=== PATIENT | male | born 1950 | race Caucasian/White ===

== ENCOUNTER 2017-09-06 07:31 | Inpatient (IN) | END 2017-09-07 14:30 | disposition home or self-care (01) | DRG 470 ==

== ENCOUNTER 2017-09-25 21:06 | Emergency (ER) | END 2017-09-26 01:00 | disposition home or self-care (01) ==

== ENCOUNTER 2018-03-21 09:19 | Inpatient (IN) | payer MEDICARE, BC ==
[2018-03-15 09:59] VITALS: Ht 181.6 cm; Wt 104.9 kg
--- NOTE | 2018-03-20 09:36 | PREOPHP ---
DATE OF ADMISSION: 03/21/2018 He is having an open irrigation and debridement right hip probable infection various surgery to be do ne by Dr. Gunter. HISTORY OF PRESENT ILLNESS: The patient is a 67-year-old male who underwent a right total hip replac ement on 09/06/2017. He developed possible wound infection with a sinus tract. He had I and D done at [facility] in 01/17/2018. He was treated with Bactrim and Keflex and then subsequent to t hat, he had another 3 to 4-week course of Keflex 500 mg t.i.d. At this time, it was opted to do open process to drain in the possible infection. He had a CT scan of the soft tissues of the hip that sh ows a possible communication regarding the skin and the hip prosthesis. MEDICAL PROBLEMS: Include: 1. Hypertension on Exforge 10/ daily. 2. Aspirin 81 mg daily. No cardiac, no SANIPRACTIC PHYSICIAN complaints. 3. BPH, on Flomax 0.4 two at bedtime and Myrbetriq 25 mg at bedtime. 4. Osteoarthritis, status post multiple orthopedic procedures in the past which included right knee contusions ____ laminectomy L4 to L5 on 10/2013, right knee arthroscopy in 1984, right total hip repl acement just recently. He takes only aspirin for p.r.n. pain. 5. Chronic sinusitis and vertigo relatively quiescent. 6. He is nonsmoker. He quit smoking 43 years ago. 7. Elevated blood sugars between 100 and 105. Likely, hemoglobin has been between 5.5 to 5.7. 8. Moderate obesity, mostly related to increased caloric intake ____. 9. Elevated cholesterol and triglycerides. He has refused taking medication. For quite some time, the collection is not really that high. 10. Vitamin D deficiency, in 3000 units daily. ALLERGIES: THE PATIENT IS ALLERGIC TO NO MEDICATIONS. SOCIAL HISTORY: He quit smoking 43 years ago. He does not drink much alcohol. Coffee 1 to 2 cups a day. PRIOR SURGERIES: Tonsillectomy age 3 or 4, laminectomy in 10/2013, right knee surgery in 1984, vasec avel at age 27, septoplasty in 1993. FAMILY HISTORY: Noncontributory. REVIEW OF SYSTEMS: Noncontributory. PHYSICAL EXAMINATION: VITAL SIGNS: Blood pressure was 134/80, pulse 80, respirations 20. GENERAL: Well-developed, well-nourished male in no acute distress. HEENT: Head is normocephalic, atraumatic. Eyes: Conjunctivae are clear. Fundi benign. ENT exam u nremarkable. NECK: Supple. Full range of motion. No thyromegaly or adenopathy. Carotid pulses are 2+ equal and symmetrical. BACK: No spine or CVA tenderness. LUNGS: Clear to percussion and auscultation. COR: Regular rate and rhythm. No gallops. No murmurs. GASTROINTESTINAL: Abdomen soft, nontender, nondistended. No masses, no hepatosplenomegaly. Bowel s ounds are normoactive. RECTAL: Done recently in the office and unremarkable. EXTREMITIES: No clubbing, cyanosis or edema. NEUROLOGICAL: Grossly physiological. LABORATORY DATA: Done. Chemistries were unremarkable. His blood sugar was 102. Pro time and PTT w ere normal. CBC was normal as well. The urine was clear. DIAGNOSTIC DATA: His EKG shows normal sinus rhythm. No ST-T segment changes. Chest x-ray was joseph l. The patient is clear for this surgery to be done by Dr. Gunter. DR. DAVID MARIA DICATING PRE-OP HISTORY AND PHYSICAL FOR DR. SARAI GUNTER. Dictated By: SARAI GUNTER MD CG/ESTEE Conf#: [id number] DID#: [id number] CC: SARAI GUNTER MD;*EndCC*
[2018-03-21] VITALS (33 sets, daily range): BP systolic 114–142; BP diastolic 57–77; PULSE 76–102; RESP 12–23
[~2018-03-21] VITALS: Ht 181.6 cm; Wt 104.9 kg
--- NOTE | 2018-03-21 06:02 | HPN ---
Date/Time of Note Date/Time of Note DATE: 03/21/18 TIME: 06:02 Interval H&P Admission Note Pt. seen H&P reviewed: No system changes SARAI GUNTER MD Mar 21, 2018 06:02
--- NOTE | 2018-03-21 06:05 | OPR ---
Date/Time of Note Date/Time of Note DATE: 03/21/18 TIME: 06:03 Operative Report Procedure Date: Mar 21, 2018 Preoperative Diagnosis Drainage from right hip Postoperative Diagnosis 1. Inflammation and drainage right hip status post total hip replacement Operation/Procedure Performed 1. Open debridement of the right hip with arthrotomy 2. Application of PRP Surgeon see signature line Manager Document Control Billy Sargent DO Second Manager Document Control: JAYE PINTO PA-C Anesthesia Type: general Estimated Blood Loss: 50 - 100 ml's Transfusion none Specimen Multiple cultures Grafts/Implants none Complications none Pt Condition Post Procedure: stable Disposition: PACU Procedure Description OVEN OPERATOR AUTOMATIC SURGEON: Billy Sargent DO was asked to be present at my request as a result of the complexity associated with this procedure including positioning of the extremity, positioning of the instrumentation and protection of the neurovascular structures. In my opinion, the assistance offered by a surgical services tech is insufficient and he should be compensated for his time. PROCEDURE IN DETAIL: Following the administration of general endotracheal anesthesia supplemented with a local anesthetic, the patient was placed in the supine position. The right lower extremity in the area of the prior incision was then sterilely prepped and draped. The right forearm was prepped and 60 cc of blood were drawn using a 60 cc syringe coated with anticoagulant. The blood was harvested from the patient and given to the administrative representative who prepared PRP concentrate.Sterile prep and drape was then undertaken. The prior incision was then made exposing the tensor fascia the fascia was incised the tensor was retracted laterally. At this point, a pocket was noted distally and slightly medially. This area was elevated and necrotic tissue was then debrided from this area. 2 cultures were obtained and sent. They were labeled #1 and #2. The devitalized tissue was then debrided and pulsatile lavage was then used. The pocket went medially but not distally and not proximally into the hip joint. Following the thorough debridement, the previously prepared PRP solution along with 2 g of vancomycin powder was then instilled in the pocket and the area of the debridement. Wound was closed using 0 Cannon filament suture as well as 2-0 monofilament suture followed by a Prenio for the final cover. This was watertight. Estimated blood loss was procedure was 50 cc. SARAI GUNTER MD Mar 21, 2018 06:05
[~2018-03-21 09:19] MED LIST: AMLO1TAB15 PO; BUPIVACAINE 0.5% (SDV) 30 ML, morphine SULFATE (PF) 8 MG, EPINEPHrine 0.3 MG, KETOROLAC... IRR SCH; CEFAZOLIN 2 GM/50 ML (PMX) 50 ML IVPB ONE; CEPH-443 PO; DEXAMETHASONE 1 MG TAB PO ONE; EPHEDrine SULFATE 50 MG/5 ML SYG ONE; GABAPENTIN 300 MG CAP PO ONE; NAPR-688 PO; OXYB5TAB22 PO; SEVOFLURANE 15 MIN ONE; SOD CHLORIDE 0.9% 100 ML, TRANEXAMIC ACID 3,000 MG IRR ONE; TAMS0.4C2 PO; TRANEXAMIC ACID 1,000 MG in DEXTROSE 5% 100 ML IVPB ONE
[2018-03-21] MEDS ORDERED: AMLO-356 PO (10:32)
[2018-03-21] MEDS ORDERED: MIRA50TA PO (10:35)
[2018-03-21] MEDS ORDERED: CEPH500C PO (10:36)
--- NOTE | 2018-03-21 12:38 | PREAC ---
Date/Time of Note Date/Time of Note DATE: 03/21/18 TIME: 12:35 Anesthesia Eval and Record Evaluation Time Pre-Procedure Interview DATE: 03/21/18 TIME: 12:35 Age 67 Sex male NPO: 8 hrs Preoperative diagnosis hip infection Planned procedure right hip open debridement Past Medical History Past Medical History: Includes Cardio: HTN Surgery & Anesthesia Issues No known issue Meds Anticoagulation: No Beta Geri within 24 hr: No Reason Beta Geri not given: Pt. not on B-Geri Reported Medications Cephalexin* (Cephalexin*) 500 Mg Capsule, 500 MG PO BID, #28 CAP STARTED 03-08-18 FOR 14 DAYS 03/21/18 Mirabegron (Myrbetriq) 50 Mg Tab.er.24h, 50 MG PO DAILY, TAB 03/21/18 Amlodipine/Valsartan (Amlodipine-Valsartan 10-320 mg) 1 Each Tablet, 1 TAB PO QPM, #30 TAB 03/21/18 Tamsulosin Hcl* (Tamsulosin Hcl*) 0.4 Mg Cap.er.24h, 0.8 MG PO HS, CAP 09/03/17 Discontinued Reported Medications Oxybutynin Chloride* (Ditropan* XL) 5 Mg Tabsr, 5 MG PO DAILY, TAB.SA 09/03/17 Amlodipine/Valsartan (Exforge 10-320 mg Tablet) 1 Each Tablet, 1 EACH PO, TAB 09/03/17 Discontinued Scripts Naproxen* (Naproxen*) 500 Mg Tablet, 500 MG PO BID PRN for PAIN, #20 TAB Prov:SENTHIL YOUNG DO 09/25/17 Cephalexin* (Keflex*) 500 Mg Capsule, 500 MG PO QID for 5 Days, CAP Prov:SENTHIL YOUNG DO 09/25/17 Current Medications Bupivacaine HCl/ Morphine Sulfate/ Epinephrine/ Ketorolac Tromethamine/ Clonidine/Sodium Chloride/ Vancomycin HCl INTRA-OP IRR ; Start 03/21/18 at 06:30; Stop 03/21/18 at 20:00 Meds reviewed: Yes Allergies Coded Allergies: sulfamethoxazole (Verified Adverse Reaction, Intermediate, nausea, 03/21/18) trimethoprim (Verified Adverse Reaction, Intermediate, nausea, 03/21/18) Allergies Reviewed: Yes Labs/Studies Labs Reviewed: Reviewed by anesthesiologist test: N/A Pre-procedure Exam Last vitals Vital Signs Date Temp Pulse Resp B/P (MAP) Pulse Ox O2 O2 Flow FiO2 Time Delivery Rate 03/21/18 97.1 82 16 139/72 98 Room Air 10:50 (94) Airway: Adequate mouth opening, Adequate thyromental dist Mallampati: Mallampati IV Teeth: Normal Lung: Normal Heart: Normal ASA Physical Status ASA physical status: 2 Emergency: None ( ) Pre-operative Attestations Prior to commencing anesthesia and surgery, the patient was re-evaluated, there was verification of: *The patient's identity *The results of appropriate recent lab work and preoperative vital signs *The above evaluation not changing prior to induction *Anesthetic plan, risk benefits, alternative and complications discussed with patient/family; questions answered; patient/family understands, accepts and wishes to proceed. EMERITA LOWE DO Mar 21, 2018 12:38
[2018-03-21] MEDS ORDERED: PROPOFOL 20 ML ONE (12:54)
[2018-03-21] MEDS ORDERED: FENTAnyl 50 MCG/ML VIAL ONE (12:55)
[2018-03-21] MEDS ORDERED: MIDAZOLAM 1 MG/ML 2 ML INJ ONE (12:55)
[2018-03-21] MEDS ORDERED: LIDOCAINE 1% (MDV) 20 ML INJ ONE (12:55)
[2018-03-21] MEDS ORDERED: ONDANSETRON 4 MG INJ ONE (13:18)
[2018-03-21] MEDS ORDERED: CEFAZOLIN 1 GM INJ ONE (13:18)
[2018-03-21] MEDS ORDERED: DEXAMETHASONE 4 MG/ML 5 ML INJ ONE (13:19)
[2018-03-21] MEDS ORDERED: POLYMYXIN/BACITRACIN 1L IRRIG ONE (13:28)
[2018-03-21] MEDS ORDERED: VANCOMYCIN 1 GM INJ ONE (13:28)
[2018-03-21] MEDS ORDERED: PHENYLephrine (100 MCG/ML) 5ML SYG ONE ×2 (13:28→13:46)
[2018-03-21] MEDS ORDERED: THROMBIN 5000 UNIT VIAL ONE (13:34)
[2018-03-21] MEDS ORDERED: CA CHLORIDE (GM) 10% 10 ML INJ ONE (13:34)
[2018-03-21] MEDS ORDERED: HYDROmorphONE 1 MG/ML SYG IV PRN (14:00)
[2018-03-21] MEDS ORDERED: DIPHENHYDRAMINE 50 MG INJ IV PRN (14:00)
[2018-03-21] MEDS ORDERED: ZOLPIDEM 5 MG TAB PO PRN (14:00)
[2018-03-21] MEDS ORDERED: oxyCODONE 5 MG TAB PO PRN ×3 (14:00)
[2018-03-21] MEDS ORDERED: ONDANSETRON 4 MG INJ IV PRN ×2 (14:00→15:00)
[2018-03-21] MEDS ORDERED: MAGNESIUM HYDROXIDE 30ML CUP PO PRN (14:00)
[2018-03-21] MEDS ORDERED: NACL 0.9% 3 ML SYG IV SCH (14:00)
--- NOTE | 2018-03-21 14:52 | PAC ---
Date/Time of Note Date/Time of Note DATE: 03/21/18 TIME: 14:51 Post-Anesthesia Notes Post-Anesthesia Note Last documented vital signs Vital Signs Date Temp Pulse Resp B/P (MAP) Pulse Ox O2 O2 Flow FiO2 Time Delivery Rate 03/21/18 98 75 16 135/69 98 Room Air 1445 Activity: WNL Respiratory function: WNL Cardiovascular function: WNL Mental status: Baseline Pain reasonably controlled: Yes Hydration appropriate: Yes Nausea/Vomiting absent: Yes EMERITA LOWE DO Mar 21, 2018 14:52
[2018-03-21] MEDS ORDERED: LABETALOL HCL 20MG INJ IV PRN (15:00)
[2018-03-21] MEDS ORDERED: hydrALAzine 20 MG INJ IV PRN (15:00)
[2018-03-21] MEDS ORDERED: HYDROmorphONE 1 MG/5 ML IV SYRINGE IV PRN ×2 (15:00)
[2018-03-21] MEDS: CEFAZOLIN 1 GM/50 ML (PMX) 50 ML IVPB SCH ×2 (15:23→23:06)
[2018-03-21] MEDS: ACETAMINOPHEN 1000MG/100ML IV 100 ML IVPB SCH ×2 (15:44→23:06)
[2018-03-21] MEDS: DEXAMETHASONE 2 MG TAB PO SCH (20:32)
[2018-03-21] MEDS: LACTATED RINGER'S 1,000 ML IV SCH ×2 (20:34→23:59)
[2018-03-21] MEDS ORDERED: GABAPENTIN 300 MG CAP PO SCH (21:00)
[2018-03-21] MEDS ORDERED: TAMSULOSIN (SR) 0.4 MG CAP PO SCH (21:00)
[2018-03-21] MEDS ORDERED: VALSARTAN PO SCH (21:00)
[2018-03-21] MEDS ORDERED: [UNRECOGNIZED DRUG - OTHER] PO SCH (21:00)
[2018-03-21] MEDS ORDERED: SENNA/DOCUSATE NA (8.6MG/50MG) TAB PO SCH (21:00)
[2018-03-21] MEDS ORDERED: AMLODIPINE PO SCH (21:00)
[2018-03-22 00:01] VITALS: BP 119/60; PULSE 75; RESP 18
[2018-03-22] MEDS: DEXAMETHASONE 2 MG TAB PO SCH ×2 (00:44→05:25)
[2018-03-22 02:00] VITALS: BP 117/59; PULSE 72; RESP 17
[2018-03-22] MEDS: ACETAMINOPHEN 1000MG/100ML IV 100 ML IVPB SCH (05:26)
[2018-03-22] MEDS: CEFAZOLIN 1 GM/50 ML (PMX) 50 ML IVPB SCH (05:26)
--- NOTE | 2018-03-22 05:58 | PN ---
Date/Time of Note Date/Time of Note DATE: 03/22/18 TIME: 05:58 Subjective Awake and alert with no discomfort Objective Vitals Vital Signs Date Temp Pulse Resp B/P (MAP) Pulse Ox O2 O2 Flow FiO2 Time Delivery Rate 03/22/18 98.1 72 17 117/59 96 Nasal 2.0 02:00 (78) Cannula Intake and Output 03/21/18 03/21/18 03/22/18 1515:00 23:00 07:00 IntakeIntake Total 600 ml 450 ml OutputOutput Total 250 ml 700 ml BalanceBalance 350 ml -250 ml Wound clean and dry. Neurologically intact. No signs of DVT. Medications Medications Current Medications Tamsulosin HCl (Flomax) 0.8 mg HS PO Last administered on 03/21/18at 20:31; Admin Dose 0.8 MG; Start 03/21/18 at 21:00 Miscellaneous Information 1 tab QPM PO ; Start 03/21/18 at 21:00; Status UNV Miscellaneous Information 50 mg DAILY PO ; Start 03/22/18 at 09:00; Status UNV Lactated Ringer's 1,000 ml @ 100 mls/hr Q10H IV Last administered on 03/21/18at 20:34; Admin Dose 100 MLS/HR; Start 03/21/18 at 13:59 Cefazolin Sodium 50 ml @ 100 mls/hr Q8H IVPB Last administered on 03/22/18at 05:26; Admin Dose 100 MLS/HR; Start 03/21/18 at 14:00; Stop 03/22/18 at 06:29 Senna/Docusate Sodium (Senokot-S) 1 tab BID PO Last administered on 03/21/18at 20:31; Admin Dose 1 TAB; Start 03/21/18 at 21:00 Simethicone (Mylicon) 80 mg TID PRN PO DISTENSION/GAS/BLOATING; Start 03/21/18 at 14:00 Magnesium Hydroxide (Milk Of Mag) 30 ml BID PRN PO CONSTIPATION; Start 03/21/18 at 14:00 Magnesium Hydroxide (Milk Of Mag) 30 ml HS PO ; Start 03/23/18 at 21:00 Dexamethasone (Decadron) 2 mg Q6 PO Last administered on 03/22/18at 05:25; Admin Dose 2 MG; Start 03/21/18 at 18:00; Stop 03/22/18 at 12:01 Gabapentin (Neurontin) 300 mg HS PO Last administered on 03/21/18at 20:31; Admin Dose 300 MG; Start 03/21/18 at 21:00 Acetaminophen 100 ml @ 400 mls/hr Q8H IVPB Last administered on 03/22/18at 05:26; Admin Dose 400 MLS/HR; Start 03/21/18 at 14:00; Stop 03/22/18 at 06:14 Oxycodone HCl (Roxicodone) 15 mg Q4H PRN PO PAIN; Start 03/21/18 at 14:00 Oxycodone HCl (Roxicodone) 10 mg Q4H PRN PO PAIN; Start 03/21/18 at 14:00 Oxycodone HCl (Roxicodone) 5 mg Q4H PRN PO PAIN; Start 03/21/18 at 14:00 Hydromorphone HCl (Dilaudid) 1 mg Q4H PRN IV BREAKTHROUGH PAIN; Start 03/21/18 at 14:00 Ondansetron HCl (Zofran Inj) 4 mg Q6H PRN IV NAUSEA AND/OR VOMITING; Start 03/21/18 at 14:00 Diphenhydramine HCl (Benadryl) 25 mg Q6H PRN IV PRURITUS; Start 03/21/18 at 14:00 Zolpidem Tartrate (Ambien) 10 mg HS PRN PO INSOMNIA; Start 03/21/18 at 14:00 IV Flush (NS 3 ml) 3 ml per protocol IV ; Start 03/21/18 at 14:00 Aspirin (Ecotrin) 325 mg DAILY PO ; Start 03/22/18 at 09:00 VTE Prophylaxis Risk score (from Nsg)>0 risk: 6 SCD applied (from Nsg): Yes Lines/Catheters IV Catheter Type: Saline Lock Bach in Place: No Assessment/Plan Assessment/Plan Assessment: Status post I&D Plan: Discharge home after ambulation this morning SARAI GUNTER MD Mar 22, 2018 05:58
--- NOTE | 2018-03-22 05:59 | PDOCDIS ---
Discharge Instructions DIAGNOSIS Discharge Diagnosis Hip infection CONDITION [id number] Patient Condition: [id number] Good HOME CARE INSTRUCTIONS: [id number] Diet Instructions: [id number] Regular ACTIVITY: [id number] Activity Restrictions: [id number] Slowly Increase Activity [id number] Bathing Restrictions: [id number] Shower FOLLOW UP/APPOINTMENTS Follow-up Plan 2 weeks SCHOOL/WORK RELEASE May return to School/Work with: With Restrictions School/Work Release Comment: Ambulation with crutches as necessary SARAI GUNTER MD Mar 22, 2018 05:59
--- NOTE | 2018-03-22 05:59 | DS ---
Date/Time of Note Date/Time of Note DATE: 03/22/18 TIME: 05:59 Discharge Summary Admission/Discharge Info Admit Date/Time Mar 21, 2018 at 09:40 Discharge Date/Time Discharge Diagnosis Hip infection Patient Condition: Good Hospital Course Admitted and underwent uncomplicated procedure. Postop day 1 discharge home after therapy Home Meds Reported Medications Cephalexin* (Cephalexin*) 500 Mg Capsule, 500 MG PO BID, #28 CAP STARTED 03-08-18 FOR 14 DAYS 03/21/18 Mirabegron (Myrbetriq) 50 Mg Tab.er.24h, 50 MG PO DAILY, TAB 03/21/18 Amlodipine/Valsartan (Amlodipine-Valsartan 10-320 mg) 1 Each Tablet, 1 TAB PO QPM, #30 TAB 03/21/18 Tamsulosin Hcl* (Tamsulosin Hcl*) 0.4 Mg Cap.er.24h, 0.8 MG PO HS, CAP 09/03/17 Discontinued Reported Medications Oxybutynin Chloride* (Ditropan* XL) 5 Mg Tabsr, 5 MG PO DAILY, TAB.SA 09/03/17 Amlodipine/Valsartan (Exforge 10-320 mg Tablet) 1 Each Tablet, 1 EACH PO, TAB 09/03/17 Discontinued Scripts Naproxen* (Naproxen*) 500 Mg Tablet, 500 MG PO BID PRN for PAIN, #20 TAB Prov:SENTHIL YOUNG DO 09/25/17 Cephalexin* (Keflex*) 500 Mg Capsule, 500 MG PO QID for 5 Days, CAP Prov:SENTHIL YOUNG DO 09/25/17 Follow-up Plan 2 weeks Primary Care Provider SARAI Bell MD Mar 22, 2018 05:59
[2018-03-22 07:19] VITALS: BP 122/64; PULSE 83; RESP 18
[2018-03-22] MEDS ORDERED: NON-FORMULARY/PATIENT OWN MED (Mirabegron (Myrbetriq) 50 MG) PO SCH (09:00)
[2018-03-22] MEDS ORDERED: ASPIRIN (EC) 325 MG TAB PO SCH (09:00)
[2018-03-23] MEDS ORDERED: MAGNESIUM HYDROXIDE 30ML CUP PO SCH (21:00)
== END 2018-03-22 08:36 | disposition home or self-care (01) | DRG 465 ==
LOC: REC 09:40 → EDSTATUS 14:30 → MS1 20:14
PROVIDERS: ADMIT Orthopaedic Surgery; ATTEND Orthopaedic Surgery
PROC: 0JBL0ZZ Excision of Right Upper Leg Subcutaneous Tissue and Fascia, Open Approach (ICD-10-PCS; principal; 2018-03-21 12:00)
DX: T84.51XA Infection and inflammatory reaction due to internal right hip prosthesis, initial encounter (principal); I10 Essential (primary) hypertension; N40.0 Benign prostatic hyperplasia without lower urinary tract symptoms; E66.9 Obesity, unspecified; Z68.31 Body mass index [BMI] 31.0-31.9, adult; E56.1 Deficiency of vitamin K
CPT/HCPCS: 73530; 86999; 87070; 87075; J0131; J0171; J0690; J0735; J1100; J1885; J2250; J2274; J2370; J2405; J3010; J3370; J7120